=== PATIENT | female | born 2005 | race Caucasian/White ===

== ENCOUNTER 2024-01-19 07:25 | Day surgery (SDC) | payer OTHER, SELFPAY ==
--- NOTE | 2024-01-19 | PATH_ITS ---
[facility] Accession Number: [id number] No. of containers..02 Tissue . 01 Material submitted: . PART A: duodenum - DUODENUM PART B: gastrointestinal site - ANTRUM . 01 Diagnosis: Part A: DUODENUM: Duodenal mucosa with no diagnostic alterations. No active inflammation and no evidence of celiac disease. . Part B: ANTRUM: Gastric mucosa with minimal chronic inflammation. No Helicobacter organisms identified. No intestinal metaplasia, dysplasia, or malignancy identified. . Specimen Comments: . STO 01/21/20241934 Local . 01 Electronically signed: . Craig Du MD, Pathologist NPI- [id number] . 01 Gross description: . A. Received in formalin with two patient identifiers and duodenum, are four johnson soft tissue fragments, 0.3 to 0.4 cm in greatest dimension. Submitted in A1. . B. Received in formalin with two patient identifiers and antrum, is a single johnson soft tissue fragment, 0.3 cm in greatest dimension. Submitted in B1. ([id number]) /MRV 01/21/20241934 Local . 01 Microscopic: . Part B: ANTRUM: An immunohistochemical stain was performed to evaluate for Helicobacter organisms and is negative. The control stains appropriately. * This test was developed and its performance characteristics determined by [facility]. It has not been cleared or approved by the [place]. Food and Drug Administration. The FDA has determined that such clearance or approval is not necessary. This test is used for clinical purposes. It should not be regarded as investigational or for research. . 01 Pathologist provided ICD-10: K29.30 . 01 CPT . 577865, 607800, R29823 Specimen Comment: A courtesy copy of this report has been sent to [phone] Performed at: [address] [facility], [place], [place] [id number] MD Craig Du MD Phone: [phone]
[2024-01-19 07:44] VITALS: BP 109/74; PULSE 79; RESP 17; TEMP 36.2; O2SAT 100
[2024-01-19] MEDS: LACTATED RINGERS 1,000 ML 42 ML IV (08:11)
--- NOTE | 2024-01-19 09:01 | PM.HP.1 ---
History of Present Illness History of Present Illness Date Patient Seen: 01/19/24 Time Patient Seen: 09:01 Chief complaint: SDC Narrative: 18-year-old female I saw in clinic recently. She has gluten intolerance and has been using gluten for the last couple of weeks. She has brain fog and feels her skin is breaking out. Blood work is pending for today. She is here for upper endoscopy to evaluate for the possibility of celiac. She additionally has reflux. [facility] Social History alcohol intake: never Meds Home Medications and Allergies Home Medications Medication Instructions Recorded Confirmed Type dextroamphetamine-amphetamine ER 1 cap PO QAM 01/19/24 01/19/24 History 10 mg 24hr capsule,extend release quetiapine 50 mg tablet 50 mg PO ONCE PM 01/19/24 01/19/24 History sertraline 50 mg tablet 75 mg PO DAILY 01/19/24 01/19/24 History Allergies Allergy/AdvReac Type Severity Reaction Status Date / Time cephalexin Allergy Hives Verified 01/19/24 07:43 Exam Vital Signs (past 8 hours): - 01/19/24 07:44 Temperature 97.2 F L Pulse Rate 79 Respiratory Rate 17 Blood Pressure 109/74 Pulse Oximetry 100 Oxygen Delivery Method Room Air Oxygen Flow Rate 0 Oxygen Delivery Method Room Air Oxygen Flow Rate 0 Const General: cooperative HENMT Head: normal to inspection Eyes General: appearance normal, both eyes and all related structures Neck Neck: normal visual inspection Chest Chest: normal inspection of the chest Resp Effort & Inspection: normal respiratory effort Cardio Rate: regular rate GI Inspection: normal to inspection Skin General: no rashes or lesions noted Neuro General: patient alert and patient awake Extrem General: normal to inspection and no pedal edema Psych Appearance: grossly normal Assessment & Plan Assessment & Plan narrative: 18-year-old female with gluten intolerance and GERD. EGD is pursued today. Time-Based Coding :: [TOTAL MINUTES] spent with patient and on the chart (including review of chart, obtaining history, exam, reviewing outside data, placing orders, documenting exam and treatment plan, and counseling patient) on [DATE].
--- NOTE | 2024-01-19 09:02 | PM.PREOP ---
Pre-operative Note Interval Note History & Physical reviewed/Exam performed by Physician: Yes Changes to H&P: No ASA Class (for procedural sedation): II
--- NOTE | 2024-01-19 09:26 | PM.OP.EGD ---
Operative Date/Time/Diagnoses Date of procedure: 01/19/24 Time of procedure: 09:27 Pre-op diagnosis: GERD gluten intolerance Post-op diagnosis: same Procedure & Clinicians Study performed: EGD with biopsies Same procedure as scheduled: Yes Indications: GERD gluten intolerance Surgeon: Ascencion Zamarripa Procedure Notes SCOAP/Timeout: Done Procedure in detail: After the risks and benefits were explained, written and verbal informed consent was obtained. The patient was brought into the procedure room and placed into the left lateral decubitus position. Please see anesthesia notes for sedation details The scope was introduced into the mouth through the bite block and advanced under direct visualization to the 2nd portion of the duodenum. The scope was slowly withdrawn carefully examining the mucosa for any defects or lesions. Retroflexed views were accomplished in the stomach. The stomach was decompressed, the scope was then removed from the patient who tolerated the procedure well. Sedation minutes: 6 Complications: none Impression: 1. Duodenum: This appeared visually normal. Multiple biopsies were taken from D2 for exclusion of sprue. 2. Stomach: No outlet obstruction no ulcers no mass lesions. Retroflexed views of the LES were unremarkable. Biopsy was acquired from the antrum for exclusion of H pylori. 3. Esophagus: The squamocolumnar junction correlated with the top of the gastric folds. GEJ was at 37 cm from the incisors. No acute erosive changes no strictures no mass lesions. The esophagus was normal. Endoscopic diagnosis Visually normal appearing upper endoscopy Post-procedure Plan for aftercare: 1. Await histology 2. Reinitiate gluten free diet. 3. Await blood work including celiac serology. Disposition: PACU
[2024-01-19 09:30] VITALS: BP 93/50; PULSE 65; RESP 16; TEMP 36.4; O2SAT 98
[2024-01-19 09:37] VITALS: BP 97/61; PULSE 84; RESP 19; TEMP 36.4; O2SAT 100
[2024-01-19 09:43] VITALS: BP 99/60; PULSE 81; RESP 18; TEMP 36.3; O2SAT 99
== END 2024-01-19 09:49 | disposition home or self-care (01) ==
PROVIDERS: Referring Provider Internal Medicine Gastroenterology; Visit Provider Internal Medicine Gastroenterology
PROC: 0DJ08ZZ Inspection of Upper Intestinal Tract, Via Natural or Artificial Opening Endoscopic (ICD-10-PCS; CPT 43235; principal; 2024-01-19 08:30)
DX: K21.9 Gastro-esophageal reflux disease without esophagitis (principal); K90.41 Non-celiac gluten sensitivity; K29.50 Unspecified chronic gastritis without bleeding
CPT/HCPCS: 43239; 36415; 80053; 80061; 80076; 81025; 82728; 83036; 83516; 83540; 83550; 85025; 85651; 86140; J2704

== ENCOUNTER → 2024-01-19 09:54 | Outpatient (CLI) | payer OTHER, SELFPAY ==
[2024-01-19 11:20] LABS: Add Manual Diff / Slide Review NO; Basophils Absolute Auto 0 /uL (0-100); Basophils Percent Auto 0.8 % (0-2); Eosinophils Absolute Auto 100 /uL (0-450); Eosinophils Percent Auto 1.2 % (2-4); Hematocrit 36.1 % (36-46); Hemoglobin 12.3 g/dL (12.0-16.0); Lymphocytes Absolute Auto 2000 /uL (1100-4500); Mean Corpuscular Hemoglobin 28.4 PG (26-34); Mean Corpuscular Volume 83.8 fL (80-100); Monocytes Absolute Auto 300 /uL (0-900); Monocytes Percent Auto 6.2 % (3-14); Neutrophils Absolute Auto 2400 /uL (1500-7000); Neutrophils Percent Auto 50.8 % (50-75); Platelet Count 343 X10^3/uL (150-400); Red Blood Cell Count 4.31 X10^6/uL (4.0-5.2); Red Cell Distribution Width 13.5 % (11.6-14.8); White Blood Cell Count 4.8 X10^3/uL (4.5-11.0)
[2024-01-19 11:39] LABS: HEMOLYSIS < 15 (0-50); Iron 61 ug/dL (37-170)
[2024-01-19 11:46] LABS: Alanine Aminotransferase 24 IU/L (<35); Albumin 4.4 g/dL (3.5-5.0); Albumin Globulin Ratio 1.6 (1.0-2.8); Alkaline Phosphatase 87 U/L (38-126); Aspartate Aminotransferase 29 IU/L (14-36); Bilirubin Total 0.4 mg/dL (0.2-1.3); Blood Urea Nitrogen 8 mg/dL (7-17); C-Reactive Protein Quant < 0.5 mg/dL (<1.0); Calcium 9.2 mg/dL (8.4-10.2); Carbon Dioxide 25 mmol/L (22-32); Chloride 104 mmol/L (98-107); Estimated Glomerular Filt Rate > 60 mL/min (>60); Globulin 2.7 g/dL (1.7-4.1); Glucose 89 mg/dL (70-100); HEMOLYSIS < 15 (0-50); Potassium 3.5 mmol/L (3.4-5.1); Sodium 138 mmol/L (137-145); Total Protein 7.1 g/dL (6.3-8.2)
[2024-01-19 11:51] LABS: Percent Iron Saturation 18 % (15-50); Total Iron Binding Capacity 344 ug/dL (265-497); Transferrin 275 mg/dL (206-381)
[2024-01-19 12:09] LABS: Erythrocyte Sedimentation Rate 1 MM/HR (0-20)
[2024-01-19 12:16] LABS: Ferritin 13 ng/mL (6-137)
[2024-01-19 12:31] LABS: Hemoglobin A1C% w Est Avg Glu 4.9 % (4.0-6.0)
== END ==
PROVIDERS: Referring Provider Internal Medicine Gastroenterology; Visit Provider Internal Medicine Gastroenterology
DX: R11.0 Nausea (principal); K90.41 Non-celiac gluten sensitivity; F31.9 Bipolar disorder, unspecified; F13.90 Sedative, hypnotic, or anxiolytic use, unspecified, uncomplicated; Z86.2 Personal history of diseases of the blood and blood-forming organs and certain disorders involving the immune mechanism
CPT/HCPCS: 36415; 80053; 80061; 80076; 82728; 83036; 83516; 83540; 83550; 85025; 85651; 86140